=== PATIENT | male | born 1985 | race Caucasian/White ===

== ENCOUNTER 2018-09-06 08:43 | Emergency (ER) | payer SELFPAY ==
[2018-09-06] MEDS ORDERED: KETOROLAC 30 MG/ML VIAL IM ONE (09:31)
[2018-09-06] MEDS ORDERED: ORPHENADRINE CITRATE 60MG/2ML VIAL IM ONE (09:31)
--- NOTE | 2018-09-06 10:23 | Emergency Department Record ---
History of Present Illness - General Chief Complaint: Back Pain/Injury Stated Complaint: BACK PAIN Time Seen by Provider: 09/06/18 09:23 Source: Patient Mode of Arrival: Ambulatory Limitations: No limitations - History of Present Illness Initial Comments: pt has had back pain for 2 says. he is not sure of the injury as he did play in sports 2 different day and injured his ribs and then his back started hurting. no numbness MD Complaint: Back pain Onset/Timin -: Days(s) Place: Other Severity scale (1-10): 9 Quality: Sharp, Stabbing Improves With: None Worsens With: Deep breaths/cough, Movement, Sitting upright, Walking Context: Unknown Treatments Prior to Arrival: NSAIDS Treatment Prior to Arrival Comment:: 800 Motrin - Related Data Previous Rx's Medication Instructions Recorded Cyclobenzaprine HCl [Flexeril] 10 mg PO TID #14 tablet 09/06/18 Hydrocodone/APAP 5/325Mg [[place] 1 each PO Q6H #7 tab 09/06/18 5Mg/325Mg] Ibuprofen [Motrin 600Mg] 600 mg PO Q6H #20 tablet 09/06/18 Allergies Allergy/AdvReac Type Severity Reaction Status Date / Time No Known Drug Allergies Allergy Verified 09/06/18 08:56 Travel Screening - Travel/Exposure Within Last 30 Days Have you traveled within the last 30 days?: No - Travel/Exposure Within Last Year Have you traveled outside the [place] in the last year?: No - Additonal Travel Details Have you been exposed to anyone with a communicable illness?: No - Travel Symptoms Symptom Screening: None Review of Systems Reviewed: No additional complaints except as noted below Constitutional: Reports: As per HPI. Denies: Chills, Fever, Malaise, Night sweats, Weakness, Weight change Eyes: Reports: As per HPI. Denies: Eye discharge, Eye pain, Photophobia, Vision change ENT: Reports: As per HPI. Denies: Congestion, Dental pain, Ear pain, Epistaxis, Hearing loss, Throat pain Respiratory: Reports: As per HPI. Denies: Cough, Dyspnea, Hemoptysis, Stridor, Wheezes Cardiovascular: Reports: As per HPI. Denies: Arrhythmia, Chest pain, Dyspnea on exertion, Edema, Murmurs, Orthopnea, Palpitations, Paroxysmal nocturnal dyspnea, Rheumatic Fever, Syncope Endocrine: Reports: As per HPI. Denies: Fatigue, Heat or cold intolerance, Polydipsia, Polyuria Gastrointestinal: Reports: As per HPI. Denies: Abdominal pain, Constipation, Diarrhea, Hematemesis, Hematochezia, Melena, Nausea, Vomiting Genitourinary: Reports: As per HPI. Denies: Dysuria, Frequency, Hematuria, Incontinence, Retention, Testicular pain, Testicular mass, Urgency Musculoskeletal: Reports: As per HPI, Back pain. Denies: Arthralgia, Gout, Joint swelling, Myalgia, Neck pain Skin: Reports: As per HPI. Denies: Bruising, Change in color, Change in hair/nails, Lesions, Pruritus, Rash Neurological: Reports: As per HPI. Denies: Abnormal gait, Confusion, Headache, Numbness, Paresthesias, Seizure, Tingling, Tremors, Vertigo, Weakness Psychiatric: Reports: As per HPI. Denies: Anxiety, Auditory hallucinations, Depression, Homicidal thoughts, Suicidal thoughts, Visual hallucinations Hematological/Lymphatic: Reports: As per HPI. Denies: Anemia, Blood Clots, Easy bleeding, Easy bruising, Swollen glands Past Medical History - SOCIAL HISTORY Smoking Status: Current every day smoker Alcohol Use: Rare Drug Use: None - RESPIRATORY Hx Respiratory Disorders: No - CARDIOVASCULAR Hx Cardio Disorders: No - NEURO Hx Neuro Disorders: No - GI Hx GI Disorders: No - Hx Genitourinary Disorders: No - ENDOCRINE Hx Endocrine Disorders: No - MUSCULOSKELETAL Hx Musculoskeletal Disorders: No - PSYCH Hx Psych Problems: No - HEMATOLOGY/ONCOLOGY Hx Hematology/Oncology Disorders: No Family Medical History Any Significant Family History?: No Physical Exam - General General Appearance: Alert, Oriented x3, Cooperative, Mild distress - Head Head exam: Normal inspection - Eye Eye exam: Normal appearance, PERRL, EOMI Pupils: Normal accommodation - ENT ENT exam: Normal exam, Mucous membranes moist, Normal external ear exam, Normal orophraynx Ear exam: Normal external inspection. negative: External canal tenderness Nasal Exam: Normal inspection. negative: Discharge, Sinus tenderness Mouth exam: Normal external inspection, Tongue normal Teeth exam: Normal inspection. negative: Dental caries Throat exam: Normal inspection. negative: Tonsillar erythema, Tonsillar exudate - Neck Neck exam: Normal inspection, Full ROM. negative: Tenderness - Respiratory Respiratory exam: Normal lung sounds bilaterally. negative: Respiratory distress - Cardiovascular Cardiovascular Exam: Regular rate, Normal rhythm, Normal heart sounds - GI/Abdominal GI/Abdominal exam: Soft, Normal bowel sounds. negative: Tenderness - Rectal Rectal exam: Deferred - exam: Deferred - Extremities Extremities exam: Normal inspection, Full ROM, Normal capillary refill. negative: Tenderness - Back Back exam: Reports: CVA tenderness (L), Muscle spasm, Tenderness. Denies: Full ROM, Rash noted - Neurological Neurological exam: Alert, CN II-XII intact, Normal gait, Oriented X3 - Psychiatric Psychiatric exam: Normal affect, Normal mood - Skin Skin exam: Dry, Intact, Normal color, Warm Course Vital Signs 09/06/18 08:43 Temperature 97.9 F Pulse Rate 72 Respiratory 16 Rate Blood Pressure 148/97 Pulse Ox 99 - Reevaluation(s) Reevaluation #1: 09/06/18 10:22 xrays neg for acute findings. l5 is not tender. pt feels better Disposition Disposition: Discharge Clinical Impression: Lumbar strain Qualifiers: Encounter type: initial encounter Qualified Code(s): S39.012A - Strain of muscle, fascia and tendon of lower back, initial encounter Disposition: Home, Self-Care Condition: (1) Good Instructions: Low Back Strain (ED) Additional Instructions: follow up with family doctor. return sooner if worse. ice and moist heat. no lifting more then 5 lbs for 5 days Prescriptions: Cyclobenzaprine HCl [Flexeril] 10 mg PO TID #14 tablet Ibuprofen [Motrin 600Mg] 600 mg PO Q6H #20 tablet Hydrocodone/APAP 5/325Mg [[place] 5Mg/325Mg] 1 each PO Q6H #7 tab Forms: Patient Portal Access, Return to Work/School Quality - Quality Measures Quality Measures: N/A - Blood Pressure Screening Does Patient Have Any of the Following: No Blood Pressure Classification: Hypertensive Reading Systolic Measurement: 148 Diastolic Measurement: 97 Screening for High Blood Pressure: < First Hypertensive BP, F/U Documented > [[id number]] First Hypertensive Follow-up Interventions: Follow-up with rescreen GT 1 day and LT 4 weeks.
--- NOTE | 2018-09-07 10:19 | RADIOLOGY REPORT ---
EXAM: LUMBAR SPINE, TWO VIEWS HISTORY: LOW BACK PAIN. ONE WEEK POST INJURY. TECHNIQUE: AP and lateral views of the lumbar spine were obtained. FINDINGS: There are five non-rib bearing lumbar type vertebra. There is straightening of the normal lumbar lordosis. The vertebral bodies are otherwise normal in alignment and height. There is subtle inferior end plate deformity of L5 posteriorly. This is age indeterminate. An acute mild end plate injury cannot be excluded. The vertebral bodies are otherwise without evidence of fracture. No lytic or blastic bone lesion. There is moderate disk space narrowing at the L4-L5 level with end plate sclerosis and end plate spurring posteriorly. The intervertebral disks are otherwise maintained. Early facet arthropathy is questioned at the lower lumbar levels. IMPRESSION: 1. SUBTLE CONCAVE DEFORMITY OF THE INFERIOR END PLATE OF L5 POSTERIORLY SEEN ON THE LATERAL VIEW. THIS IS AGE INDETERMINATE. MINOR ACUTE END PLATE INJURY CANNOT BE EXCLUDED. NO OTHER EVIDENCE OF FRACTURE NOR SUBLUXATION. 2. MODERATE DEGENERATIVE DISK/END PLATE CHANGES AT THE L4-L5 LEVEL. 3. BILATERAL FACET ARTHROPATHY AT THE LOWER LUMBAR LEVELS. JOB NUMBER: [id number] [facility]
--- NOTE | 2018-09-07 10:29 | RADIOLOGY REPORT ---
EXAM: LEFT RIBS WITH PA CHEST HISTORY: ANTERIOR AND LATERAL LEFT RIB PAIN ONE WEEK POST INJURY. TECHNIQUE: AP and oblique views of the let ribs are obtained. An upright PA view of the chest was also obtained. Comparison: None. Encounter: Initial. FINDINGS: There is normal bone mineralization. No definite acute left rib fracture. No lytic or blastic bone lesion. The heart is not enlarged and the pulmonary vasculature is nondilated. The lungs and pleural spaces are clear. IMPRESSION: NO ACUTE LEFT RIB FRACTURE IDENTIFIED. NO RADIOGRAPHIC EVIDENCE OF ACUTE CARDIOPULMONARY DISEASE. JOB NUMBER: [id number] [facility]
== END 2018-09-06 11:13 | disposition home or self-care (01) ==
LOC: ER 08:43
DX: S39.012A Strain of muscle, fascia and tendon of lower back, initial encounter (principal); X58.XXXA Exposure to other specified factors, initial encounter; F17.210 Nicotine dependence, cigarettes, uncomplicated
CPT/HCPCS: 99283; 96372; 99284; 72100; 71101; J1885; J2360